=== PATIENT | male | born 1965 | race Hispanic/Latino ===

== ENCOUNTER 2016-09-12 03:09 | Emergency (ER) | payer MEDICARE, OTHER ==
[2016-09-12 03:13] VITALS: BMI 37.4
[2016-09-12] MEDS ORDERED: DiphenhydrAMINE 50 mg/ml Inj IVP STA (03:16)
--- NOTE | 2016-09-12 03:21 | ED PDOC ---
Arrival/HPI <HuZeeshan - Last Filed: 09/12/16 04:08> - History of Present Illness Time/Duration: 1 hour Symptom Onset: Gradual Activities at Onset: Eating Context: Home <MichaelElaine jones - Last Filed: 09/12/16 06:50> - General Time Seen by Provider: 09/12/16 03:11 - History of Present Illness Narrative History of Present Illness (Text): 09/12/16 03:17 50 year old male presents for facial and throat swelling. Patient states that he began to notice diffuse itching about 1 hour prior to arrival. Patient then noticed facial swelling and now feels like his throat is swelling up. Patient denies having any difficulty breathing, wheezing or chest pain. patient had shrimp and lobster for dinner. Patient does not have any food allergies or medicine allergies. (Elaine Qiu) Past Medical History - Provider Review Nursing Documentation Reviewed: Yes - Infectious Disease Hx of Infectious Diseases: None - Cardiac Hx Hypertension: Yes - Musculoskeletal/Rheumatological Other/Comment: TORN LIGAMENT - Gastrointestinal Hx Gastrointestinal Disorders: No - Psychiatric Hx Substance Use: No - Anesthesia Hx Anesthesia: No <Elaine Qiu - Last Filed: 09/12/16 06:50> Family/Social History - Physician Review Nursing Documentation Reviewed: Yes Family/Social History: Unknown Family HX Smoking Status: Never Smoked Hx Alcohol Use: No Hx Substance Use: No <Elaine Qiu - Last Filed: 09/12/16 06:50> Allergies/Home Meds <HuZeeshan - Last Filed: 09/12/16 04:08> <Elaine Qiu - Last Filed: 09/12/16 06:50> Allergies/Adverse Reactions: Allergies shellfish derived Allergy (Verified 09/12/16 03:13) SWELLING Home Medications: Home Meds Medication Instructions Recorded Confirmed Aripiprazole 5 mg PO DAILY 03/16/16 09/12/16 Aspirin [Ecotrin] 81 mg PO DAILY 03/16/16 09/12/16 Clonazepam 0.5 mg PO TID 03/16/16 09/12/16 Desvenlafaxine Succinate [Pristiq] 50 mg PO DAILY 03/16/16 09/12/16 Hydralazine HCl 100 mg PO Q8H 03/16/16 09/12/16 Lansoprazole 30 mg PO DAILY 03/16/16 09/12/16 Lovastatin 10 mg PO HS 03/16/16 09/12/16 Metoprolol Succinate [Toprol XL] 200 mg PO DAILY 03/16/16 09/12/16 Valsartan [Diovan] 320 mg PO DAILY 03/16/16 09/12/16 amLODIPine [Norvasc] 10 mg PO DAILY 03/16/16 09/12/16 hydroCHLOROthiazide [Hydrodiuril] 25 mg PO DAILY 03/16/16 09/12/16 Review of Systems - Review of Systems Constitutional: Normal. absent: Fevers Eyes: Normal. absent: Vision Changes ENT: Other (throat swelling and lip swelling ) Respiratory: Normal. absent: SOB, Cough, Wheezing Cardiovascular: Normal. absent: Chest Pain, Calf Pain Gastrointestinal: Normal. absent: Abdominal Pain, Constipation, Diarrhea, Nausea, Vomiting Genitourinary Male: Normal. absent: Dysuria, Frequency Musculoskeletal: Normal. absent: Arthralgias, Back Pain, Neck Pain Neurological: absent: Headache, Dizziness Endocrine: Normal. absent: Diaphoresis Psychiatric: Normal. absent: Anxiety, Depression <Karim,Elaine - Last Filed: 09/12/16 06:50> Physical Exam Vital Signs Reviewed: Yes Temperature: Afebrile Blood Pressure: Hypotensive Pulse: Regular Respiratory Rate: Normal <Zeeshan Lui - Last Filed: 09/12/16 04:08> Mental Status: Positive for: Alert and Oriented X 3 - Systems Exam Head: Present: Atraumatic, Normocephalic Mouth: No: Normal Lips (facial swelling noted ) Pharnyx: Present: Soft Palate/Uvular Edema, Other. No: Strider Respiratory/Chest: Present: Clear to Auscultation. No: Respiratory Distress, Accessory Muscle Use, Wheezes, Rales, Rhonchi Cardiovascular: Present: Regular Rate and Rhythm, Normal S1, S2. No: Murmurs, Rub, Gallop Abdomen: Present: Normal Bowel Sounds. No: Tenderness, Distention, Peritoneal Signs Lower Extremity: Present: Normal Inspection. No: Edema, CALF TENDERNESS Neurological: Present: GCS=15, Speech Normal Skin: Present: Warm, Dry, Normal Color. No: Rashes Psychiatric: Present: Alert, Oriented x 3, Normal Insight, Normal Concentration <Karim,Elaine - Last Filed: 09/12/16 06:50> Vital Signs Temp Pulse Resp BP Pulse Ox 09/12/16 05:25 98.1 F 99 H 15 110/62 98 09/12/16 04:30 98.8 F 99 H 16 105/61 95 09/12/16 03:20 98.4 F 93 H 16 90/48 L 94 L Medical Decision Making <Zeeshan Lui - Last Filed: 09/12/16 04:08> <Elaine Qiu - Last Filed: 09/12/16 06:50> ED Course and Treatment: 09/12/16 04:10 In agreement with resident note, which includes further HPI details. Patient was seen and evaluated with resident, came up with plan and treatment together. 50 year old male who presents to the emergency department for facial and throat swelling one hour prior to arrival. -- Benadryl -- EPINEPHrine -- Pepcid -- SOLU- Medrol -- IV Fluids (Zeeshan Lui) 09/12/16 03:21 50 year old male presents with allergic reaction likely to seafood Will give stat dose of Solu-medrol 125 mg IVP, Benadryl 50 mg IVP and pepcid 40 mg PO 09/12/16 04:15 Patient is found to be hypotensive and is given 1 L NS bolus. Patient is also given epinephrin 09/12/16 04:40 Repeat blood pressure check is 105/61. (Elaine Qiu) - Medication Orders Current Medication Orders: Discontinued Medications Diphenhydramine HCl (Benadryl) 50 mg IVP STAT STA Stop: 09/12/16 03:17 Last Admin: 09/12/16 03:34 Dose: 50 mg Epinephrine HCl (Epinephrine) 0.3 mg SC ONCE ONE Stop: 09/12/16 03:51 Last Admin: 09/12/16 03:55 Dose: 0.3 mg Famotidine (Pepcid 20mg/50ml Premix) 20 mg in 50 mls @ 100 mls/hr IVPB STAT STA Stop: 09/12/16 04:00 Last Admin: 09/12/16 03:41 Dose: 100 mls/hr Sodium Chloride (Sodium Chloride 0.9%) 1,000 mls @ 999 mls/hr IV .Q1H1M STA Stop: 09/12/16 04:48 Last Admin: 09/12/16 03:55 Dose: 999 mls/hr Methylprednisolone (Solu-Medrol) 125 mg IVP STAT STA Stop: 09/12/16 03:17 Last Admin: 09/12/16 03:35 Dose: 125 mg Disposition/Present on Arrival <Zeeshan Lui - Last Filed: 09/12/16 04:08> - Present on Arrival Any Indicators Present on Arrival: Yes History of DVT/PE: No History of Uncontrolled Diabetes: No Urinary Catheter: No History Surgical Site Infection Following: None - Disposition Have Diagnosis and Disposition been Completed?: Yes Disposition Time: 06:16 Patient Plan: Discharge <Elaine Qiu - Last Filed: 09/12/16 06:50> - Disposition Diagnosis: Allergic reaction Disposition: HOME/ ROUTINE Patient Problems: Current Active Problems Problem Status Onset Allergic reaction Acute Condition: STABLE Additional Instructions: Nathan Tillman, thank you for letting us take care of you today. Your provider was Dr. Elaine Qiu. You were treated for allergic reaction. The emergency medical care you received today was directed at your acute symptoms. If you were prescribed any medication, please fill it and take as directed. It may take several days for your symptoms to resolve. Return to the Emergency Department if your symptoms worsen, do not improve, or if you have any other problems. Please contact your doctor or call one of the physicians/clinics you have been referred to that are listed on the Patient Visit Information form that is included in your discharge packet. Bring any paperwork you were given at discharge with you along with any medications you are taking to your follow up visit. Our treatment cannot replace ongoing medical care by a primary care provider (PCP) outside of the emergency department. Thank you for allowing the [facility] team to be part of your care today. If you had an X-Ray or CT scan: A Radiologist will review the ED reading if any change in treatment is needed we will contact you. If you had a blood, urine, or wound culture: It will take several days for the results, if any change in treatment is needed we will contact you. If you had an STI test: It will take 48 hours for the results. Please call after 1 week if you have not heard back. Prescriptions: Famotidine [Pepcid] 20 mg PO DAILY #20 tab hydrOXYzine HCl [Atarax] 10 mg PO TID #60 tab predniSONE [Prednisone] 60 mg PO DAILY #10 tab
[2016-09-12] MEDS ORDERED: Famotidine 20mg/50ml 20 MG/50 ML BAG IVPB STA (03:31)
[2016-09-12] MEDS ORDERED: Sodium Chloride 0.9% 1,000 ML IV STA (03:48)
[2016-09-12] MEDS ORDERED: EPINEPHrine 1 mg/ml (1:1000) Inj SC ONE (03:50)
[2016-09-12 07:31] VITALS: BP 121/70; PULSE 88; RESP 16; TEMP 98; O2SAT 99
== END 2016-09-12 07:00 | disposition home or self-care (01) ==
LOC: ED 03:09
DX: T78.40XA Allergy, unspecified, initial encounter (principal); X58.XXXA Exposure to other specified factors, initial encounter
CPT/HCPCS: 96361; 96372; 96374; 96375; 99283; J0171; J1200; J2930; J7040

== ENCOUNTER 2018-05-19 08:36 | Outpatient (CLI) | payer MEDICARE | END 2018-05-19 08:37 | disposition home or self-care (01) | LOC: RAD 08:36 ==